=== PATIENT | male | born 1945 | race Caucasian/White ===

== ENCOUNTER 2017-05-10 19:28 | Emergency (ER) | payer OTHER, MEDICARE ==
[2017-05-10 20:08] LABS: BASOPHIL 0.1 % (0-2); EOSINOPHIL 1.4 % (0-7); HCT 47.5 % (42.0-52.0); HGB 16.2 g/dl (13.2-18.0); LYMPHOCYTE 31.4 % (15-48); MCH 27.8 pg (25.0-31.0); MCHC 34.1 g/dL (32.0-36.0); MCV 81.5 fL (78.0-100.0); MONOCYTE 10.6 % (0-12); MPV 10.8 fL (6.0-9.5); NEUTROPHIL 56.5 % (41-80); PLT 192 K/uL (150-400); RBC 5.83 M/uL (4.70-6.00); RDW 15.9 % (11.5-14.0); WBC 8.1 K/uL (4.0-10.5)
[2017-05-10 20:22] LABS: INR 1.02 (0.9-1.2); PROTHROMBIN TIME 12.5 SECONDS (11.4-13.2)
[2017-05-10 20:23] LABS: PTT 27.8 SECONDS (24.3-32.1)
[2017-05-10 20:31] LABS: ALBUMIN 4.1 g/dL (3.4-4.8); BILIRUBIN - TOTAL 0.8 mg/dL (0.1-1.0); GLOBULIN (CALCULATION) 3.4 g/dL (2.2-4.2); MAGNESIUM 1.91 mg/dL (1.40-2.10); POTASSIUM 3.9 mmol/L (3.5-5.1); TOTAL PROTEIN 7.5 g/dL (6.4-8.3)
[2017-05-10 20:32] LABS: MYOGLOBIN 28 ng/mL (26-65); PRO-BNP 56 pg/mL (0-125); TROPONIN T < 0.010 ng/mL
== END 2017-05-10 23:33 | disposition other institution (70) ==
LOC: FER 19:28
PROVIDERS: Emergency Medicine Emergency Medical Services
DX: I25.110 Atherosclerotic heart disease of native coronary artery with unstable angina pectoris (principal); R68.84 Jaw pain; M54.2 Cervicalgia; I11.9 Hypertensive heart disease without heart failure; E11.9 Type 2 diabetes mellitus without complications; Z86.73 Personal history of transient ischemic attack (TIA), and cerebral infarction without residual deficits; Z79.84 Long term (current) use of oral hypoglycemic drugs; Z87.891 Personal history of nicotine dependence; Z91.041 Radiographic dye allergy status; Z79.899 Other long term (current) drug therapy; Z79.02 Long term (current) use of antithrombotics/antiplatelets
CPT/HCPCS: 36415; 71010; 80053; 82550; 82553; 83735; 83874; 83880; 84484; 85025; 85610; 85730; 93005; J2270; J2405